=== PATIENT | female | born 1950 | race Two or more races ===

== ENCOUNTER 2016-10-22 09:23 | Observation (INO) | payer OTHER ==
[~2016-10-22] VITALS: Ht 160 cm; Wt 60.5 kg
[2016-10-22 10:01] LABS: HEMATOCRIT 42.8 % (36.0-46.0); MCH 31.7 PG (29.0-34.0); MCV 90.5 FL (83-99); MEAN PLAT.VOLUME 9.6 uM^3 (9.5-12.4); PLATELET COUNT 247 K/uL (156-360); RBC DIS.WIDTH-SD 39.8 % (39-53); RED BLOOD COUNT 4.73 M/uL (3.80-5.20); WHITE BLOOD COUNT 6.3 K/uL (4.1-10.2)
[2016-10-22 10:12] LABS: CHLORIDE 108 mEq/L (99-109); POTASSIUM 3.7 mEq/L (3.7-5.4); SODIUM 143 mEq/L (136-147)
[2016-10-22 10:14] LABS: GLUCOSE 104 mg/dL (70-99)
[2016-10-22 10:15] LABS: ANION GAP 11 MEQ/L (2-14)
[2016-10-22 10:18] LABS: GFR ESTIMATE (CALCULATED) > 59 mL/min/; UREA NITROGEN (BUN) 14 mg/dL (9-23)
[2016-10-22 10:21] LABS: TROP-I INTERPRETATION NEGATIVE; TROPONIN-I < 0.01 ng/mL (0.0-0.30)
[2016-10-22] MEDS ORDERED: ESSENTIAL DAIL1 EACH PO (11:31)
[2016-10-22] MEDS ORDERED: NASACORT10.8 ML BOTH NARES (11:31)
[2016-10-22] MEDS ORDERED: FISH OIL 1,001000 M2 PO (11:32)
[2016-10-22] MEDS ORDERED: MAGNESIUM 300300 MG PO (11:32)
[2016-10-22] MEDS ORDERED: VITAMIN D31000 UNIT PO (11:32)
[2016-10-22 13:38] LABS: TROP-I INTERPRETATION NEGATIVE; TROPONIN-I < 0.01 ng/mL (0.0-0.30)
[2016-10-22 15:48] VITALS: BP 171/99
== END 2016-10-22 15:00 | disposition home or self-care (01) ==
LOC: EME 09:23 → EDOF 11:32
PROVIDERS: Emergency Medicine
DX: R07.9 Chest pain, unspecified (principal); R68.84 Jaw pain; R03.0 Elevated blood-pressure reading, without diagnosis of hypertension; Z88.0 Allergy status to penicillin
CPT/HCPCS: 71020; 80048; 84484; 85027; 93005; G0378